=== PATIENT | male | born 1945 | race Hispanic/Latino ===

== ENCOUNTER 2017-10-16 06:42 | Emergency (ER) | payer MEDICARE ==
--- NOTE | 2017-10-16 07:38 | C.PDOC ---
History Of Present Illness 72 yo male with h/o enlarged prostate came into ER for urinary retention. Notes yesterday he saw Dr Welch who removed the catheter and last night the urinary retention restarted. Denies dysuria, hematuria, back pain, n/v, or fever. Time Seen by Provider: 10/16/17 07:11 Chief Complaint (Nursing): Male Genitourinary History Per: Patient History/Exam Limitations: no limitations Onset/Duration Of Symptoms: Days (yesterday) Current Symptoms Are (Timing): Still Present Past Medical History Vital Signs: Last Vital Signs Temp 97.6 F 10/16/17 08:16 Pulse 81 10/16/17 08:16 Resp 18 10/16/17 08:16 BP 136/73 10/16/17 08:16 Pulse Ox 98 10/16/17 08:16 - [facility] Procedures LOC EXC BONE LESION NEC (09/23/12) REPAIR OF HAMMER TOE (09/23/12) Family History: States: Unknown Family Hx - Social History Hx Alcohol Use: Yes Hx Substance Use: No - Immunization History Hx Tetanus Toxoid Vaccination: No Review Of Systems Constitutional: Negative for: Fever Cardiovascular: Negative for: Chest Pain Respiratory: Negative for: Shortness of Breath Gastrointestinal: Positive for: Abdominal Pain (suprapubic) Genitourinary: Negative for: Dysuria, Frequency, Incontinence, Hematuria, Penile Discharge, Scrotal Pain Physical Exam - Physical Exam Appears: Well, Non-toxic, Other (uncomfortable) Skin: Normal Color, Warm, Dry Head: Atraumatic, Normacephalic Eye(s): bilateral: Normal Inspection, EOMI Nose: Normal Oral Mucosa: Moist Neck: Normal, Normal ROM Chest: Symmetrical Cardiovascular: Rhythm Regular Respiratory: Normal Breath Sounds, No Accessory Muscle Use Gastrointestinal/Abdominal: Soft, Tenderness (suprapubic) Back: Normal Inspection, No CVA Tenderness Extremity: Normal ROM Neurological/Psych: Oriented x3, Normal Speech ED Course And Treatment Progress Note: Pt was seen and evaluated by Dr Welch at bedside, who inserted camargo. Approx [address] Welch instructs discharge and to f/u outpt in office. Disposition - Disposition Referrals: Michael Welch MD [Staff Provider] - Disposition: HOME/ ROUTINE Disposition Time: 08:31 Condition: STABLE Additional Instructions: Follow up with your urologist as scheduled. Instructions: Urinary Retention (DC) Forms: [facility] (Bhutanese) - Clinical Impression Clinical Impression: Urinary retention
[2017-10-16 08:16] VITALS: BP 136/73; PULSE 81; RESP 18; TEMP 97.6; O2SAT 98
== END 2017-10-16 09:07 | disposition home or self-care (01) ==
LOC: C.ER 06:42
DX: R33.8 Other retention of urine (principal)